=== PATIENT | female | born 1975 | race Caucasian/White ===

== ENCOUNTER 2021-05-08 10:49 | Emergency (ER) | payer OTHER | END 2021-05-08 13:52 | disposition home or self-care (01) | LOC: ER1 10:49 | DX: S61.300A Unspecified open wound of right index finger with damage to nail, initial encounter (principal); X58.XXXA Exposure to other specified factors, initial encounter; Z90.710 Acquired absence of both cervix and uterus | CPT/HCPCS: 99283 ==

== ENCOUNTER → 2021-05-16 | Emergency (ER) | payer OTHER ==
[2021-05-16 21:38] LABS: HEMOGLOBIN 12.9 gm/dl (12.3-15.3); RED BLOOD COUNT 4.2 M/UL (4.00-5.10)
[2021-05-16 21:56] LABS: BUN/CREATININE RATIO 17 (0-10)
== END | disposition home or self-care (01) ==
LOC: ER1 14:05
PROVIDERS: Emergency Medicine
DX: G89.18 Other acute postprocedural pain (principal); M79.10 Myalgia, unspecified site
CPT/HCPCS: 10060; 72193; 80048; 85025; 96374; 99284; J1885; Q9967